=== PATIENT | female | born 1995 | race Caucasian/White ===

== ENCOUNTER 2017-05-14 23:05 | Emergency (ER) | payer OTHER ==
[2017-05-15] MEDS ORDERED: methylPREDNISolone 125 MG* 2 ML VIAL IV ONE (02:50)
[2017-05-15] MEDS ORDERED: NS 0.9% 1000 ML* 1,000 ML IV ONE (02:50)
[2017-05-15] MEDS ORDERED: Ketorolac INJ* 30 MG/ML 1 ML VIAL IV PUSH ONE (02:50)
--- NOTE | 2017-05-15 02:57 | ED ---
Throat Pain/Nasal Congestion - HPI Summary HPI Summary: Patient here with pharyngitis since May 11. She was seen at [facility] and clinically diagnosed with strep throat (she does not believe testing was performed to completion). Started on Pen-V K PO which she took for 2 days but noting that she has still been having fevers every night, one as high as 103 Fahrenheit, and is still having sore throat with increased swelling, she return to [facility] today and was switched from penicillin to Augmentin - she's taken 1 dose thus far. She is still concerned tonight that things are getting worse and she came here to be evaluated. She is able to swallow however this is painful when she does as she feels her throat is tight. She is breathing well and still drinking fluids to stay hydrated. She's been taking 400 mg of ibuprofen every 4 hours. Appetite is reduced but denies nausea, vomiting, diarrhea, chest pain, abdominal pain, otalgia or loss of hearing, dizziness, headache, neck stiffness. - History of Current Complaint Chief Complaint: EDFever Time Seen by Provider: 05/15/17 02:50 Hx Obtained From: Patient, Family/Director Energy - Roommate - Allergies/Home Medications Allergies/Adverse Reactions: Allergies Allergy/AdvReac Type Severity Reaction Status Date / Time No Known Allergies Allergy Verified 05/14/17 23:13 PMH/Surg Hx/FS Hx/Imm Hx Previously Healthy: Yes Endocrine/Hematology History: Denies: Hx Anticoagulant Therapy, Hx Blood Disorders, Hx Unexplained Bleeding EENT History: Reports: Hx Tonsillitis - h/o strep throat when she was younger but hasn't had this in many years - Immunization History Immunizations Up to Date: Yes Infectious Disease History: No Infectious Disease History: Denies: Traveled Outside the [place] in Last 30 Days - Family History Known Family History: Positive: Diabetes - Social History Occupation: Student Lives: Dormitory/Roommates Alcohol Use: Occasionally Hx Substance Use: No Substance Use Type: Reports: None Hx Tobacco Use: No Smoking Status (MU): Never Smoked Tobacco Review of Systems Positive: Fever, Fatigue. Negative: Chills Eyes: Negative Positive: Sore Throat. Negative: Ear Ache, Nasal Discharge Cardiovascular: Negative Negative: Chest Pain Respiratory: Negative Negative: Shortness Of Breath, Cough Gastrointestinal: Negative Negative: Abdominal Pain, Vomiting, Diarrhea, Nausea Positive: no symptoms reported Musculoskeletal: Negative Skin: Negative Neurological: Negative Psychological: Normal All Other Systems Reviewed And Are Negative: Yes Physical Exam Triage Information Reviewed: Yes Vital Signs On Initial Exam: Initial Vitals Temp Pulse Resp BP Pulse Ox 97.3 F 126 18 137/98 98 05/14/17 23:08 05/14/17 23:08 05/14/17 23:08 05/14/17 23:08 05/14/17 23:08 Vital Signs Reviewed: Yes Appearance: Positive: Ill-Appearing - Generalized pallor and appears mildly fatigued - she is sitting upright, ambulating on her own, caring her own bag and is able to speak in full sentences without fatigue or shortness of breath; she does however have a somewhat muffled voice without stridor, Pain Distress - Appears to have discomfort with swallowing, Obese Skin: Positive: Warm, Skin Color Reflects Adequate Perfusion, Dry Eyes: Positive: Normal, EOMI, Conjunctiva Clear. Negative: Conjunctiva Inflammed, Discharge ENT: Positive: Hearing grossly normal, Pharyngeal erythema - No bleeding, Nasal congestion - To some degree due to throat swelling, TMs normal, Tonsillar swelling - Tonsils appear to be edematous and moving down into inferior pharynx , Tonsillar exudate, Muffled voice, Uvula midline. Negative: Nasal drainage, Trismus Neck: Positive: Tenderness @, Enlarged Nodes @ - Submandibular lymph nodes are swollen and tender to palpation; parotid glands are not edematous and nontender to palpation Respiratory/Lung Sounds: Positive: Clear to Auscultation, Breath Sounds Present. Negative: Rales, Rhonchi, Stridor, Tracheal Deviation, Wheezes, Unable to speak in full sentences, Fatigue Cardiovascular: Positive: Normal, S1, S2. Negative: Murmur, Rub Abdomen Description: Positive: Nontender, No Organomegaly, Soft Bowel Sounds: Positive: Present Musculoskeletal: Positive: Normal, Strength/ROM Intact Neurological: Positive: Normal, Sensory/Motor Intact, Alert, Oriented to Person Place, Time, CN Intact II-III Psychiatric: Positive: Normal Diagnostics - Vital Signs Vital Signs Temp Pulse Resp BP Pulse Ox 05/15/17 01:25 99.8 F 90 20 120/67 100 05/14/17 23:08 97.3 F 126 18 137/98 98 - Laboratory Lab Statement: Any lab studies that have been ordered have been reviewed, and results considered in the medical decision making process. EENT Course/Dx - Course Course Of Treatment: Patient appears to have tonsillitis leading to dysphasia and sensation of throat swelling. Will assess for source of infection with rapid strep as well as [place] testing (no rash so clinical suspicion of mono is low). Will provide patient with anti-inflammatory relief through Toradol and steroid via IV as well as IV fluids. She started been taking PO antibiotics for the past 2+ days and had her evening dose of Augmentin - will refrain from further antibiotics in an effort to avoid resistance. Advised she may increase dose of ibuprofen for better effect. Will also send magic mouthwash to [facility] in the event she continues to have dysphagia - educated about the importance of hydration. Pt and roommate voice understanding. Signed out to Dr. Maya pending labs. - Diagnoses Provider Diagnoses: Pharyngitis Discharge - Discharge Plan Condition: Stable Disposition: HOME Prescriptions: Magic Mouth Was-SHARIF/MAAL/LIDO* 5 ml SWISH SWAL QID PRN #100 ml PRN Reason: Sore Throat Patient Education Materials: Tonsillitis (ED) Forms: *School Release Referrals: [facility] - Yang LYNN [Primary Care Provider] - Additional Instructions: Rest, hydrate with fluids, continue ibuprofen 600 mg every 6 hours or 800 mg every 8 hours with food, complete course of antibiotics and follow-up with [facility] tomorrow. Magic mouthwash as also been ordered and sent to [facility] pharmacy in the event he continue to have pain with swallowing - use as directed. *If you develop worsening of pain, throat tightness or swelling, difficulty breathing or swallowing, headache or neck stiffness, fever greater than 103 despite taking ibuprofen and/or Tylenol, return to the emergency department
[2017-05-15 03:32] LABS: Hematocrit 33 % (35-47); Hemoglobin 10.9 g/dl (12.0-16.0); Mean Corpuscular HGB Conc 33 g/dl (31-36); Mean Corpuscular Hemoglobin 26 pg (27-31); Mean Corpuscular Volume 78 fL (80-97); Mean Platelet Volume 9 um3 (7.4-10.4); Platelet Count 236 10^3/ul (150-450); Red Blood Count 4.24 10^6/ul (4.0-5.4); Red Cell Distribution Width 14 % (10.5-15); White Blood Count 12.1 10^3/ul (3.5-10.8)
[2017-05-15 03:51] LABS: EGFR Non-African American 98.5 (>60)
[2017-05-15 03:54] LABS: ABS Basophils 0 10^3/ul (0-0.2); ABS Eosinophils 0 10^3/ul (0-0.6); ABS Lymphocytes 1.1 10^3/ul (1.0-4.8); ABS Monocytes 1.8 10^3/ul (0-0.8); ABS Neutrophils 9.1 10^3/ul (1.5-7.7); ABS Nucleated RBC 0 10^3/ul; Eosinophil % 0.1 % (0-6); Lymphocyte % 9.3 % (25-47); Nucleated Red Blood Cells % 0
[2017-05-15] MEDS ORDERED: Acetaminophen TAB* 325 MG PO ONE (04:03)
[2017-05-15] MEDS ORDERED: Ibuprofen TAB* 800 MG PO ONE (04:03)
[2017-05-15 05:58] VITALS: BP 126/70
== END 2017-05-15 05:57 | disposition home or self-care (01) ==
LOC: ED 23:05
DX: J02.9 Acute pharyngitis, unspecified (principal); R50.9 Fever, unspecified; R53.83 Other fatigue
CPT/HCPCS: 36415; 80053; 83605; 85025; 86140; 86308; 87651; 96374; 96375; 99284; A9270-GY; J1885; J2930

== ENCOUNTER 2019-03-30 20:46 | Emergency (ER) | payer OTHER ==
--- OUTSIDE RECORDS SUMMARY | 2019-03-30 20:52 | XMS REPORT | Continuity of Care Document ---
:1995 External Reference #:[id number] Author Name Neha Alberts DNP, RN, SIMPLEX OPERATOR-BC (transmitted by agent of provider Stephanie Ferrell) Address [address], [address] [place] [address] Problems Description No Information Available Social History Type Date Description Comments Sex Unknown Tobacco Use Start: Unknown Never Smoked Cigarettes Smoking Status Reviewed: 02/07/19 Never Smoked Cigarettes ETOH Use Occasionally consumes alcohol Tobacco Use Start: Unknown Patient has never smoked Recreational Drug Use Denies Drug Use Exercise Type/Frequency Exercises regularly Allergies, Adverse Reactions, Alerts Description No Known Drug Allergies Medications Active Medications SIG Qnty Indications Ordering Provider Date Modafinil 1/2 tab in am and 30tabs G47.12 Neha Alberts, 02/07/2019 200mg 1/2 tab before HENNY, RN, SIMPLEX OPERATOR-BC Tablets noon, if needed as directed Cyred 1 qd Unknown 0.15-30mg-mcg Tablets History Medications No Active Medications Sierra Carroll MD 11/30/2018 - 11/30/2018 Immunizations Description No Information Available Vital Signs Date Vital Result Comment 02/07/2019 10:57am Height 62 inches 5'2" Weight 188.00 lb Heart Rate 78 /min BP Systolic 134 mmHg BP Diastolic 74 mmHg O2 % BldC Oximetry 98 % BMI (Body Mass Index) 34.4 kg/m2 11/30/2018 8:03am Height 62 inches 5'2" Weight 189.00 lb Heart Rate 77 /min BP Systolic Sitting 110 mmHg BP Diastolic Sitting 78 mmHg O2 % BldC Oximetry 98 % BMI (Body Mass Index) 34.6 kg/m2 Neck Circumference in inches 14 Results Test Acquired Date Facility Test Result H/L Range Note Drug Screen 01/15/2019 [facility] Urine None Detected None Urine Pain [address] [place] [address] Screen [phone] Urine Oxycodone Screen None Detected None Detect Urine Fentanyl Screen None Detected None Detect Urine Methadone Screen None Detected None Detect Urine Buprenorphine Screen None Detected None Detect Urine Amphetamine Screen None Detected None Detect Urine Barbiturates Screen None Detected None Detect Urine Benzodiazepine Screen None Detected None Detect Urine Cannabinoids Screen None Detected None Detect Urine Cocaine Screen None Detected None Detect Urine Opiates Screen None Detected None Detect Urine Phencyclidine Screen None Detected None Detect 1 1 The specimen was tested at the listed cutoffs: Drug Class Test level (ng/mL) Hydrocodone 300 Oxycodone 100 Fentanyl 1 Methadone 150 Buprenorphine 5 Amphetamines 500 Barbiturates 200 Benzodiazepines 200 Cocaine 150 Cannabinoids 50 Opiates 300 PCP 25 Specimen was received without chain of custody. Results should be used for medical purposes only. 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 Neha Alberts DNP, RN, SIMPLEX OPERATOR-BC sleep time 01/14/2019 G47.33 Obstructive sleep apnea (adult) Sierra Carroll MD (pediatric) 11/30/2018 G47.10 Hypersomnia, unspecified Sierra Carly, MD Plan of Treatment Future Appointment(s):03/26/2019 1:30 pm - Neha Alberts DNP, RN, SIMPLEX OPERATOR-BC at [facility]02/07/2019 - Neha Alberts DNP, RN, SIMPLEX OPERATOR- BCG47.33 Obstructive sleep apnea (adult) (pediatric)Comments:Sleep Apnea - NPSG AHI 5.3/hour, worse supine 8.3/hour, marilou oxygen 93% Supine dependentFollow up:4-6 weeksRecommendations:Sleep apnea to start positional therapy. Review of sleep studies in detail. Risks of untreated sleep apnea including cardiovascular events: rhythm irregularities, heart attack, stroke; gastro esophageal reflux disease (GERD); diabetes; anxiety, depression; high blood pressure; accidents (machinery and automobile) Recommendation for PAP other treatment modalities NON-PAP including oral appliance/mandibular advancement device, and positional strategies. If you decide the positional therapy is too disruptive and you want to trial CPAP auto or oral appliance mandibular device, call for a prescription. If you have any further questions , please call the [facility] at [phone].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 sleep timeNew Medication:Modafinil 200 mg - 1/2 tab in am and 1/2 tab before noon, if needed as directedRecommendations:Recommend not to drive until apnea treated. MSLT test consistent with idiopathic hypersomnia Read package insert and report side effects If you decided to become sexually active would need 2-forms of control (not control pills- ineffective) Functional Status Description No Information Available Mental Status Description No Information Available Referrals Description No Information Available
--- OUTSIDE RECORDS SUMMARY | 2019-03-30 20:52 | XMS REPORT | Continuity of Care Document ---
:1995 External Reference #:[id number] Author Name Neha Alberts DNP, RN, YESY-BC (transmitted by agent of provider Stephanie Dallas) Address [address], [address] [place] [address] Care Team Providers Name Role Phone 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 Neha Alberts DNP RN, EXECUTIVE PRODUCER PROMOS-BC Onset: 02/07/2019 sleep time Obstructive sleep apnea syndrome Neha Alberts DNP, RN, EXECUTIVE PRODUCER [employer]OMOS-BC Onset: Social History Type Date Description Comments Sex Unknown Tobacco Use Start: Unknown Never Smoked Cigarettes Smoking Status Reviewed: 03/26/19 Never Smoked Cigarettes ETOH Use Occasionally consumes alcohol Tobacco Use Start: Unknown Patient has never smoked Recreational Drug Use Denies Drug Use Exercise Type/Frequency Exercises regularly Allergies, Adverse Reactions, Alerts Description No Known Drug Allergies Medications Active Medications SIG Qnty Indications Ordering Provider Date Modafinil 1/2 tab in am and 30tabs G47.12 Neha Alberts, 02/07/2019 200mg 1/2 tab before HENNY RN, EXECUTIVE PRODUCER PROMOS-BC Tablets noon, if needed as directed Cyred 1 qd Unknown 0.15-30mg-mcg Tablets History Medications No Active Medications Sierra Carroll MD 11/30/2018 - 11/30/2018 Immunizations Description No Information Available Vital Signs Date Vital Result Comment 03/26/2019 1:12pm Height 62 inches 5'2" Weight 199.00 lb Heart Rate 76 /min BP Systolic Sitting 110 mmHg BP Diastolic Sitting 80 mmHg O2 % BldC Oximetry 98 % BMI (Body Mass Index) 36.4 kg/m2 02/07/2019 10:57am Height 62 inches 5'2" Weight 188.00 lb Heart Rate 78 /min BP Systolic 134 mmHg BP Diastolic 74 mmHg O2 % BldC Oximetry 98 % BMI (Body Mass Index) 34.4 kg/m2 Results Test Acquired Facility Test Result H/L Range Note Date Laboratory test 02/07/2019 [facility] HCG < 0.60 [address] mIU/[place] [address] [phone] Drug Screen 01/15/2019 [facility] Urine None None Urine Pain [address] [place]cod[place] [address] Screen [phone] Urine Oxycodone Screen None Detected None Detect [...] Urine Phencyclidine Screen None Detected None Detect 2 1 <5.0 Negative 5.0 - 25.0 Indeterminate (Repeat testing recommended after 72 hours) >25.0 Positive Perimenopausal women can display HCG levels of up to 20 mIU/mL 2 The specimen was tested at the listed cutoffs: Drug Class Test level (ng/mL) Hydrocodone 300 Oxycodone 100 Fentanyl 1 Methadone 150 Buprenorphine 5 Amphetamines 500 Barbiturates 200 Benzodiazepines 200 Cocaine 150 Cannabinoids 50 Opiates 300 PCP 25 Specimen was received without chain of custody. Results should be used for medical purposes only. 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 sleep time Office Visit 11/30/2018 8:30a Pulmonology And Sierra G47.10 Hypersomnia, [facility] MD Carly unspecified [facility] Assessments Date Code Description Provider 03/26/2019 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 Neha Alberts DNP, RN, EXECUTIVE PRODUCER PROMOS-RUSTAM sleep time 03/26/2019 G47.33 Obstructive sleep apnea (adult) Neha Alberts DNP, DAMIAN, EXECUTIVE PRODUCER PROMOS-RUSTAM (pediatric) 02/07/2019 G47.33 Obstructive sleep apnea (adult) Neha Alberts DNP, DAMIAN, EXECUTIVE PRODUCER PROMOS-RUSTAM (pediatric) 02/07/2019 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 MSLT test consistent with idiopathic hypersomnia Read package insert and report side effects If you decided to become sexually active would need 2-forms of control (not control pills-ineffective)G47.33 Obstructive sleep apnea ( adult) (pediatric)Recommendations:Sleep apnea to continue positional therapy. Review of sleep studies in detail. Risks of untreated sleep apnea including cardiovascular events: rhythm irregularities, heart attack, stroke; gastro esophageal reflux disease (GERD); diabetes; anxiety, depression; high blood pressure; accidents (machineryand automobile) Recommendation for PAP other treatment modalities NON-PAP including oral appliance/mandibular advancement device, and positional strategies. If you decide the positional therapy is toodisruptive and you want to trial CPAP auto or oral appliance mandibular device, call for a prescription. If you have any further questions, please call the [facility] at [phone]. Functional Status Description No Information Available Mental Status Description No Information Available Referrals Description No Information Available
[2019-03-30 21:03] VITALS: BP 145/72
--- NOTE | 2019-03-30 21:13 | UC ---
UC General HPI - HPI Summary HPI Summary: developed sores in mouth and skin on face feels warm is concerned it is related to a new medication - History of Current Complaint Chief Complaint: Jesica Stated Complaint: RASH AND SORES IN MOUTH Time Seen by Provider: 03/30/19 21:05 Hx Obtained From: Patient Hx Last Menstrual Period: 03/25/2019 Onset/Duration: Sudden Onset, Lasting Days Timing: Constant Pain Intensity: 0 - Allergy/Home Medications Allergies/Adverse Reactions: Allergies Allergy/AdvReac Type Severity Reaction Status Date / Time No Known Allergies Allergy Verified 05/14/17 23:13 Home Medications: Home Medications Modafinil TAB* [Provigil TAB*] 03/30/19 [History] PMH/Surg Hx/FS Hx/Imm Hx Previously Healthy: No - hypersomnia Other History Of: Negative For: Anticoagulant Therapy - Surgical History Surgical History: None - Family History Known Family History: Positive: Diabetes - Social History Occupation: Student Lives: Dormitory/Roommates Alcohol Use: Weekly Substance Use Type: None Smoking Status (MU): Never Smoked Tobacco Review of Systems All Other Systems Reviewed And Are Negative: Yes Constitutional: Positive: Negative Skin: Positive: Negative Eyes: Positive: Negative ENT: Positive: Other - sore inside mouth Respiratory: Positive: Negative Cardiovascular: Positive: Negative Gastrointestinal: Positive: Negative Genitourinary: Positive: Negative Motor: Positive: Negative Neurovascular: Positive: Negative Musculoskeletal: Positive: Negative Neurological: Positive: Negative Psychological: Positive: Negative Is Patient Immunocompromised?: No Physical Exam Triage Information Reviewed: Yes Appearance: Well-Appearing, No Pain Distress, Well-Nourished Vital Signs: Initial Vital Signs Temp 99.4 F 03/30/19 20:54 Pulse 96 03/30/19 20:54 Resp 16 03/30/19 20:54 BP 145/72 03/30/19 20:54 Pulse Ox 96 03/30/19 20:54 Vital Signs Reviewed: Yes Eye Exam: Normal Eyes: Positive: Conjunctiva Clear ENT Exam: Normal ENT: Positive: Normal ENT inspection, Hearing grossly normal, Pharynx normal, TMs normal, Uvula midline. Negative: Nasal congestion, Tonsillar swelling, Trismus, Muffled voice, Hoarse voice, Dental tenderness, Sinus tenderness Dental Exam: Normal Neck exam: Normal Neck: Positive: Supple, Nontender, No Lymphadenopathy Respiratory Exam: Normal Respiratory: Positive: Chest non-tender, Lungs clear, Normal breath sounds, No respiratory distress, No accessory muscle use Cardiovascular Exam: Normal Cardiovascular: Positive: RRR, No Murmur, Pulses Normal, Brisk Capillary Refill Musculoskeletal Exam: Normal Musculoskeletal: Positive: Strength Intact, ROM Intact, No Edema Neurological Exam: Normal Neurological: Positive: Alert, Muscle Tone Normal Psychological Exam: Normal Skin: Positive: Other - slight erythema on cheeks---tender painful sores in mouth Course/Dx - Course Course Of Treatment: number sprays for sores in mouth, cool showers bath and face wash follow with pcp prn - Diagnoses Provider Diagnosis: Canker sores oral, Acute dermatitis, Hypertension Discharge ED - Sign-Out/Discharge Documenting (check all that apply): Patient Departure All imaging exams completed and their final reports reviewed: No Studies - Discharge Plan Condition: Stable Disposition: HOME Patient Education Materials: Canker Sores (ED), Hypertension (ED), Dermatitis ( ED) Referrals: No Primary Care Phys,NOPCP [Primary Care Provider] - Additional Instructions: follow with your provider or return as needed - Billing Disposition and Condition Condition: STABLE Disposition: Home
== END 2019-03-30 21:20 | disposition home or self-care (01) ==
LOC: UCEAST 20:46
DX: K12.0 Recurrent oral aphthae (principal); L30.9 Dermatitis, unspecified; I10 Essential (primary) hypertension
CPT/HCPCS: 99211; G0463